=== PATIENT | male | born 2000 | race Two or more races ===

== ENCOUNTER 2025-10-22 14:41 | Emergency (ER) | payer OTHER ==
[~2025-10-22] VITALS: Ht 175.3 cm; Wt 79.4 kg
[2025-10-22 16:23] VITALS: BP 119/82; O2SAT 100
[2025-10-22 18:19] LABS: BASO % 0.2 % (0.1-1.2); EOS # 0.16 (0.04-0.54); EOS % 1.9 % (0.7-7.0); LYMPH # 2.71 (1.18-3.74); LYMPH % 31.6 % (19.3-53.1); MEAN PLATELET VOLUME 10.50 fl (9.4-12.4); MONO # 0.56 (0.24-0.82); MONO % 6.5 % (4.7-12.5); NEUT # 5.11 (1.56-6.13); NEUT % 59.6 % (34.0-71.1); RED CELL DISTRIBUTION WIDTH 12.9 % (11.6-14.4)
[2025-10-22 18:22] LABS: ERYTHROCYTE SEDIMENTATION RATE 2 mm/hr (0-15)
[2025-10-22 18:44] LABS: ALT/SGPT 30 U/L (12-78); AST/SGOT 12 U/L (15-37); BILIRUBIN TOTAL 0.76 mg/dL (0.3-1.2); BUN CREA RATIO 8 (7.0-25.0); CREATININE SERUM 0.72 mg/dL (0.70-1.30); GFR 130.95; GLOBULINA 3.8 G/DL (2.4-3.5); GLUCOSE FASTING 92 mg/dL (65-100); OSMOLALITY SERUM 282 MOSM/KG (275-295)
== END 2025-10-22 19:00 | disposition home or self-care (01) ==
LOC: ER 14:41
PROVIDERS: Physician Assistant Medical
DX: L72.3 Sebaceous cyst (principal)